=== PATIENT | female | born 1970 | race Caucasian/White ===

== ENCOUNTER 2022-10-17 13:15 | Emergency (ER) | payer OTHER, SELFPAY ==
--- NOTE | ~2022-10-17 | XR_ITS ---
XR chest 2V DATE: 10/17/2022 14:16 INDICATION: Cough and congestion for 4 days. Smoker. TECHNIQUE: 2 views COMPARISON: None FINDINGS: Normal heart size. No hilar or mediastinal enlargement. There is old pulmonary granulomatou s disease. No pulmonary infiltrate or consolidation. No pleural effusion or pulmonary vascular congestion or pneumothorax. Included skeletal structures ar e unremarkable. IMPRESSION: No active cardiac pulmonary disease; old pulmonary granulomatous disease Reviewed, dictated and finalized at location B. [facility] [employer] IMPRESSION: No active cardiac pulmonary disease; old pulmonary granulomatous di portiae
--- NOTE | 2022-10-17 13:48 | ED.URI ---
HPI - URI/Sore Throat General Chief Complaint: Upper Respiratory Infection Stated Complaint: chest congestion,cough Time Seen by Provider: 10/17/22 13:49 Source: patient Mode of arrival: ambulatory Limitations: no limitations History of Present Illness HPI Narrative: 51-year-old female presents with complaint of cough, chest congestion for 1 week. Reports shortness of breath with coughing fits. Cough is worse at night. Afebrile. Taking [id number] Mucinex with no relief of chest congestion. Patient is current everyday smoker. All systems reviewed and negative except as noted above. Related Data Allergies Allergy/AdvReac Type Severity Reaction Status Date / Time No Known Allergies Allergy Verified 10/17/22 13:36 Review of Systems Review of Systems: CONSTITUTIONAL: Denies fever, chills, or sweats. EYES: Denies visual changes, redness, or discharge. ENT: Denies rhinorrhea, congestion, sore throat, or otalgia. CARDIOVASCULAR: Denies chest pain, palpitations, or edema. RESPIRATORY: Reports cough and dyspnea with coughing. GASTROINTESTINAL: Denies abdominal pain, nausea, vomiting, or diarrhea. GENITOURINARY: Denies dysuria or hematuria. SKIN: Denies rash or itching. MUSCULOSKELETAL: Denies back pain, joint pain, or myalgia. NEUROLOGIC: Denies headache, numbness, or weakness. PSYCHIATRIC: Denies anxiety or depression. All other systems reviewed are negative, except as documented in HPI. PMFSH Social History Social History Alcohol intake: never Comments At time of signature, agree with nursing past medical, surgical, social and family history. There is no relevant family history pertinent to the presenting complaint. Exam Narrative: GENERAL: This is a well-nourished, well-developed patient, in no apparent distress. HEAD: normocephalic, atraumatic. EYES: PERRL. Sclera clear/white. Vision is grossly intact. EARS: External ears normal, auditory canals clear and without drainage, TMs normal without perforation. Hearing grossly intact. NOSE: External nose normal with no obvious nasal discharge, nares without redness, no rhinorrhea. THROAT: Mucous membranes moist, posterior pharynx clear. NECK: Neck supple, non-tender without lymphadenopathy, masses or thyromegaly. CARDIOVASCULAR: Regular rate and rhythm without murmurs, gallops, or rubs. RESPIRATORY: decreased lung sounds throughout all lung nayak with mild expiratory wheezing to lower lobes. SKIN: warm, Dry, intact with no suspicious lesions or rash, good texture and turgor. NEURO: awake, alert, and oriented to person, place and time. There were no obvious focal neurologic abnormalities. EXTREMITIES: No joint tenderness, effusion, or edema noted. Course Course Level of Care: Express Care Visit Vital Signs Vital signs: Vital Signs Temperature 37.0 C 10/17/22 13:50 Pulse Rate 108 H 10/17/22 13:50 Respiratory Rate 20 10/17/22 13:50 Blood Pressure 116/77 10/17/22 13:50 Pulse Oximetry 99 10/17/22 13:50 Oxygen Delivery Room Air 10/17/22 13:50 Temperature 37.0 C 10/17/22 13:50 Pulse Rate 108 H 10/17/22 13:50 Respiratory Rate 20 10/17/22 13:50 Blood Pressure 116/77 10/17/22 13:50 Pulse Oximetry 99 10/17/22 13:50 Oxygen Delivery Room Air 10/17/22 13:50 Reviewed MDM - URI/Sore Throat MDM Narrative Medical decision making narrative: Patient is aware of diagnosis, understands and agrees to treatment plan. Anticipatory guidance given. Patient agrees to follow-up as directed and is aware of reasons to seek care at the emergency department. Portions of this record may have been created with voice recognition software Differential Diagnosis Differential diagnosis: Likely upper respiratory infection, viral infection and bronchitis Imaging Data My impression: agree with radiologist Radiologist's impression: IMPRESSION: No active cardiac pulmonary disease; old pulmonary granulomatous disease? Discharge Plan
[2022-10-17 13:50] VITALS: BP 116/77; PULSE 108; RESP 20; TEMP 37; O2SAT 99
== END 2022-10-17 14:36 | disposition home or self-care (01) ==
PROVIDERS: Emergency Provider Nurse Practitioner Family
DX: J20.9 Acute bronchitis, unspecified (principal)
CPT/HCPCS: 71046; 99213; G0463